=== PATIENT | female | born 1985 | race Caucasian/White ===

== ENCOUNTER 2018-06-18 01:51 | Inpatient (IN) | payer MEDICAID ==
[~2018-06-18] VITALS: Ht 167.6 cm; Wt 91.6 kg
[~2018-06-18 01:51] MED LIST: PREN-96 PO
[2018-06-18] MEDS ORDERED: DERMOPLAST 60ML BOTTLE TOP PRN (02:00)
[2018-06-18] MEDS: LACTATED RINGER'S 1,000 ML IV SCH ×2 (02:00→10:00)
[2018-06-18] MEDS ORDERED: PHISODERM TOP SOLN 240ML BTL TOP PRN (02:00)
[2018-06-18] MEDS ORDERED: LIDOCAINE 2% (LOCAL ANESTH.) PF 5ml SDV ID ONE (02:00)
[2018-06-18] MEDS ORDERED: METHYLERGONOVINE MALEATE 0.2 MG/ML AMP IM PRN (02:00)
[2018-06-18] MEDS ORDERED: WITCH HAZEL-GLYCERIN PAD TOP PRN (02:00)
[2018-06-18] MEDS ORDERED: LACT. RINGERS/OXYTOCIN 20UNITS 1,000 ML IV SCH (02:00)
[2018-06-18] MEDS ORDERED: NALBUPHINE HCL 10 MG/1ml INJECTION IV PRN (02:00)
[2018-06-18 03:10] LABS: Basophils # (auto) 0 uL; Basophils % (auto) 0.3 % (0.0-2.0); Eosinophils # (auto) 0 uL; Eosinophils % (auto) 0.5 % (0.0-7.0); Hematocrit 33.6 % (36.0-46.0); Hemoglobin 11.5 g/dL (12.2-16.2); Lymphocytes # (auto) 1.9 uL; Lymphocytes % (auto) 28.4 % (10.0-50.0); Mean Corpuscular Hemoglobin 33.2 pg (28.0-32.0); Mean Corpuscular Hgb Conc. 34.4 g/dL (32.0-36.0); Mean Corpuscular Volume 96.6 fL (80.0-100.0); Monocytes # (auto) 0.5 uL; Monocytes % (auto) 7.9 % (0.0-12.0); Neutrophils # (auto) 4.3 uL; Neutrophils % (auto) 62.9 % (37.0-80.0); Platelet Count (auto) 195 10^3/uL (140-450); Red Blood Cells 3.48 10^6/uL (4.0-5.20); White Blood Cell 6.9 10^3/uL (4.4-10.8)
[2018-06-18 03:20] LABS: INR 0.89 (0.9-1.15); Partial Thromboplastin Time 28.1 sec (23.78-33.04); Prothrombin Time 9.6 sec (9.27-12.13)
[2018-06-18 03:25] LABS: Albumin 2.4 g/dL (3.4-5.0); Calcium 7.9 mg/dL (8.5-10.1); Potassium 3.6 mmol/L (3.5-5.1)
[2018-06-18 03:28] LABS: BUN/Creatinine Ratio 11.5; Bilirubin, Total 0.3 mg/dL (0.2-1.0); Total Protein 5.9 g/dL (6.4-8.2)
[2018-06-18 04:14] LABS: Alcohol, Urine < 3.0 mg/dL (0-5); Amphetamine Screen, Urine NEGATIVE (NEGATIVE); Barbiturate Scree,Urine NEGATIVE (NEGATIVE); Benzodiazephine Screen, Urine NEGATIVE (NEGATIVE); Cannabinoid Screen, Urine NEGATIVE (NEGATIVE); Cocaine Screen, Urine NEGATIVE (NEGATIVE); Opiate Scree,Urine NEGATIVE (NEGATIVE); Phencyclidine Screen, Urine NEGATIVE (NEGATIVE)
[2018-06-18 04:17] LABS: Urine Bacteria MOD /hpf (None Seen); Urine Blood 2+ /uL (Negative); Urine Mucus FEW (None Seen); Urine Specific Gravity 1.015 (1.001-1.035); Urine WBC 24 /hpf (0 - 5)
[2018-06-18 15:00] VITALS: BP 122/70
[2018-06-18] MEDS ORDERED: ACETAMINOPHEN 325 MG TAB PO PRN (17:00)
[2018-06-18] MEDS: IBUPROFEN 600 MG TAB PO PRN ×2 (17:09→20:23)
[2018-06-18 19:05] VITALS: BP 129/69
[2018-06-19 00:05] VITALS: BP 116/57
[2018-06-19 04:06] LABS: RPR Non Reactive (Non Reactive)
[2018-06-19 04:22] VITALS: BP 108/55
[2018-06-19] MEDS: IBUPROFEN 600 MG TAB PO PRN (04:23)
[2018-06-19 07:00] VITALS: BP 108/65
[2018-06-19] MEDS ORDERED: DOCUSATE CALCIUM 240 MG CAP PO SCH (10:00)
[2018-06-19 11:00] VITALS: BP 112/72
== END 2018-06-19 12:40 | disposition home or self-care (01) | DRG 560 ==
LOC: LDRP 01:51
PROVIDERS: ADMIT Obstetrics & Gynecology; ATTEND Obstetrics & Gynecology
PROC: 10E0XZZ Delivery of Products of Conception, External Approach (ICD-10-PCS; principal; 2018-06-18)
DX: O77.0 Labor and delivery complicated by meconium in amniotic fluid (principal); Z37.0 Single live birth; Z3A.40 40 weeks gestation of pregnancy
CPT/HCPCS: 36415; 59025; 59409; 76805; 80053; 80307; 81001; 85025; 85610; 85730; 86592; 86850; 86900; 86901; 96365; 96366; 96372; J2001; J2590

== ENCOUNTER 2020-10-13 18:23 | Observation (INO) | payer MEDICAID | END 2020-10-13 21:36 | disposition home or self-care (01) | LOC: UNDOADMOB 18:23 → LDRP 18:23 → UNDODISOB 21:36 | PROVIDERS: ADMIT Obstetrics & Gynecology; ATTEND Obstetrics & Gynecology | DX: O62.9 Abnormality of forces of labor, unspecified (principal); Z3A.39 39 weeks gestation of pregnancy | CPT/HCPCS: 59025; 81002; G0378 ==

== ENCOUNTER 2020-10-16 16:30 | Observation (INO) | payer MEDICAID ==
[~2020-10-16] VITALS: Ht 167.6 cm; Wt 92.5 kg
== END 2020-10-16 18:33 | disposition home or self-care (01) ==
LOC: LDRP 16:30 → UNDOADMOB 16:30 → UNDODISOB 18:33
PROVIDERS: ADMIT Obstetrics & Gynecology; ATTEND Obstetrics & Gynecology
DX: O62.9 Abnormality of forces of labor, unspecified (principal); Z3A.39 39 weeks gestation of pregnancy
CPT/HCPCS: 59025; 76818; 81002; G0378